=== PATIENT | male | born 1965 | race Caucasian/White ===

== ENCOUNTER 2020-03-10 21:07 | Emergency (ER) | payer SELFPAY ==
[~2020-03-10] VITALS: Ht 167.6 cm; Wt 88.1 kg
--- NOTE | 2020-03-10 21:38 | NUR ---
THIS PT PRESENTS TO THE ER WITH GENERALIZED COMPLAINTS OF "I JUST DON'T FEEL GOOD, I DON'T FEEL RIGHT." SEE SKIN ASSESSMENT, PT DENIES ANY PAIN. PT A&OX4. CONNECTED TO CARDIAC, BP AND O2 MONITORS. BEDRAILS UP X2, CALL LIGHT IN REACH. ERP HAS BEEN TO BEDSIDE. ALL PT'S QUESTIONS ANSWERED AT THIS TIME.
[2020-03-10] MEDS ORDERED: ACETAMINOPHEN 500 MG TABLET PO ONE (22:00)
[2020-03-10] MEDS ORDERED: AMPICILLIN/SULBACTAM 3 GM in SODIUM CHLORIDE 0.9% 100 ML IV ONE (22:00)
[2020-03-10 22:05] LABS: BASOPHILS # (AUTO) 0.03 x10^3/uL (0-0.1); BASOPHILS % (AUTO) 0 % (0-1); EOSINOPHILS % (AUTO) 0 % (1-7); LYMPHOCYTES # (AUTO) 0.81 x10^3/uL (1-3.4); LYMPHOCYTES % (AUTO) 10 % (22-44); MD NO; MEAN CORPUSCULAR HEMOGLOBIN 30.9 pg (27.5-34.5); MEAN CORPUSCULAR HGB CONC 33.1 g/dL (33.2-36.2); MEAN CORPUSCULAR VOLUME 93.6 fL (81-97); MEAN PLATELET VOLUME 8.9 fL (7.4-10.4); MONOCYTES # (AUTO) 0.41 x10^3/uL (0.2-0.8); MONOCYTES % (AUTO) 5 % (2-9); NEUTROPHILS % (AUTO) 85 % (42-75); PLATELET COUNT 255 x10^3/uL (130-400); RED BLOOD COUNT 4.26 x10^6/uL (4.38-5.82); RED CELL DISTRIBUTION WIDTH 12.4 % (9.4-14.8)
[2020-03-10 22:11] LABS: ALANINE AMINOTRANSFERASE 51 U/L (12-78); ALBUMIN 2.4 g/dL (3.4-5.0); ANION GAP 9 mmol/L (5-15); CALCIUM 8.6 mg/dL (8.5-10.1); CHLORIDE 102 mmol/L (98-107); CREATININE 0.96 mg/dL (0.7-1.3)
[2020-03-10 22:14] LABS: ALKALINE PHOSPHATASE 79 U/L (45-117); BILIRUBIN,TOTAL 0.6 mg/dL (0.2-1.0); TOTAL PROTEIN 7.6 g/dL (6.4-8.2)
[2020-03-10] MEDS ORDERED: ACETAMINOPHEN 500 MG TABLET ONE (22:24)
--- NOTE | 2020-03-10 22:59 | NUR ---
ERP TO BEDSIDE. PT UPDATED ON POC.
[2020-03-10] MEDS ORDERED: SULFAMETH./TRIMETHOPRIM DS 800MG/160MG TABLET PO ONE (23:30)
[2020-03-10] MEDS ORDERED: SULFAMETH./TRIMETHOPRIM DS 800MG/160MG TABLET ONE (23:32)
[2020-03-10 23:39] VITALS: BP 101/56
[2020-03-10] MEDS ORDERED: NEOSPORIN OINT. PKT 1 PACKET ONE (23:42)
--- NOTE | 2020-03-10 23:46 | NUR ---
PT GIVEN BACITRAICIN AND BANDAID AND EDUCATION TO CLEAN 5TH TOE WOUND.
== END 2020-03-10 23:47 | disposition home or self-care (01) ==
LOC: EDBD 21:07 → ED 22:29
DX: L03.032 Cellulitis of left toe (principal); L03.116 Cellulitis of left lower limb; A41.9 Sepsis, unspecified organism; R00.0 Tachycardia, unspecified
CPT/HCPCS: 36415; 80053; 83605; 85025; 87040; 93971; 96365; 99291; J0295